=== PATIENT | female | born 1990 | race African-American/Black ===

== ENCOUNTER 2024-07-11 12:16 | Emergency (ER) | payer OTHER, SELFPAY ==
--- NOTE | ~2024-07-11 | XR_ITS ---
EXAMINATION: XR CHEST CLINICAL INFORMATION: chest pain COMPARISON: None available. TECHNIQUE: 2 views of the chest were obtained. FINDINGS: The cardiac, hilar, and mediastinal contours are normal. The lungs are clear bilaterally. There is no pneumothorax or pleural effusion. There is no focal osseous or soft tissue abnormality. XR/XR chest 2V IMPRESSION: Normal chest. Electronically signed by: Wai Cruz MD 07/11/2024 02:17 PM [facility]
--- NOTE | 2024-07-11 12:27 | ECG_ITS ---
Test Reason : CHEST PAIN Blood Pressure : / mmHG Vent. Rate : 097 BPM Atrial Rate : 097 BPM P-R Int : 148 ms QRS Dur : 072 ms QT Int : 350 ms P-R-T Axes : 059 023 017 degrees QTc Int : 444 ms Normal sinus rhythm Possible Left atrial enlargement Nonspecific T wave abnormality Abnormal ECG No previous ECGs available Referred By: Generic ED Physician Electronically Signed By:Ric Truong
[2024-07-11 12:32] VITALS: BP 151/90; BP 158/105; PULSE 118; PULSE 89; RESP 18; TEMP 36.8; O2SAT 100; BMI 26.7
--- NOTE | 2024-07-11 12:40 | ED.CHESTPAIN ---
HPI - Chest Pain General Chief Complaint: Chest Pain Stated Complaint: SHARP CP PER EMS Time Seen by Provider: 07/11/24 16:09 Source: patient Mode of arrival: ambulatory Limitations: no limitations History of Present Illness ED Provider: DR. Castaneda HPI narrative: 34-year-old female who was otherwise healthy moved from [place] to [facility] for month ago started her new job, for the last 4 month patient noted that she gained about 10-15 lb unintentionally, patient also noticed that she has been having epigastric pain with food, and has been having menstrual disturbance which is not normal for her Now her menstruation is regular and back to normal, patient is sexually not active for the past 4-5 months. No risk for STDs. presented today for 4 hours history of mid chest pain that has been waxing and waning blood constant for 4 hours pain is in the center of the chest with no radiation, No lower extremity swelling or tenderness, no SOB at rest. No history of tobacco smoking or drug use, history is insignificant For ACS /pulmonary embolism in young age. Related Data Allergies Allergy/AdvReac Type Severity Reaction Status Date / Time shrimp Allergy Anaphylaxis Verified 07/11/24 12:39 Review of Systems Review of Systems: all other systems are reviewed and are negative Constitutional: Reports as per HPI and Reports no additional constitutional complaints Eyes: Reports as per HPI and Reports no additional eye complaints Reports system reviewed and no additional complaints, except as documented Cardiovascular: Reports as per HPI and Reports no additional cardiovascular complaints Respiratory: Reports as per HPI and Reports no additional respiratory complaints Gastrointestinal: Reports as per HPI and Reports no additional gastrointestinal complaints Genitourinary: Reports no additional female genitourinary complaints Musculoskeletal: Reports no additional musculoskeletal complaints Skin/Breast: Reports system reviewed and no additional complaints, except as docu Psychiatric: Reports no additional psychiatric complaints Endocrine: Reports no additional endocrine complaints Hematologic/Lymphatic: Reports no additional hematologic/lymphatic complaints Allergic/Immunologic: Reports no additional allergic/immunologic complaints Reports system reviewed and no additional complaints, except as documented and Reports Abnormal speech present [facility] Social History Social History Smoked in Last 30 Days: No Use of substances other than those prescribed or required for medical reasons: No Do you have a plan to hurt others: No Plan Patient : No Physical Exam Vital Signs: Vital Signs: Last Vital Signs Temp 98.3 F 07/11/24 16:25 Pulse 85 07/11/24 16:25 Resp 12 07/11/24 16:25 BP 130/88 07/11/24 16:25 Pulse Ox 100 07/11/24 16:25 O2 Del Method Room Air 07/11/24 16:25 BMI result Body Mass Index 26.7 Vital signs have been reviewed and appear to be correct. Blood pressure elevated. Heart rate normal. Respiratory rate normal. Temperature normal. Oxygen saturation normal. Appearance: Alert. Oriented X3. No acute distress. Head: Normal external exam. Normocephalic. Atraumatic. No Layton signs noted. No raccoon eyes noted Eyes: PERRLA. EOMI. Conjunctiva and sclera normal. Eyelids normal. ENT: TM's Normal. Pharynx normal. Uvula midline. Moist mucous membranes. No trismus noted. No drooling noted. No muffled voice noted. Neck: Normal inspection. Neck supple. FROM. No adenopathy. Thyroid Normal. No meningeal signs. No neck mass noted. CVS: Normal heart rate and rhythm. Heart sound normal. No murmurs noted. Pulses normal throughout. Respiratory: No respiratory distress. Painless inspiration. Breath sounds normal. No wheezes/rales/rhonchi noted. Chest nontender. No accessory muscle usage noted or decreased air movement noted. Abdomen: Soft and nontender. Bowel sounds normal in all 4 quadrants. No distention noted. No organomegaly noted. No visible injury noted. Back: No CVA tenderness. Full range of motion noted. Skin: Skin warm and dry. Normal skin color. Normal skin turgor. No rashes/lesions/lacerations noted. Extremities: No lower extremity edema. Extremities exhibit normal range of motion. Extremities nontender. Neuro: Oriented X 3. Cranial nerve exam: II-XII are grossly intact No motor deficit. No sensory deficit. Reflexes normal. Course Course Course Narrative: This is a Rapid Medical Examination (RME) performed by Evangelista Virgen PA-C in triage. Full HPI, ROS, assessment and treatment plan per primary provider in the Main ED. 34 yo female here via EMS for eval of sternal chest pain. no radiation. originally a 9/10, now an 8/10. not relieved with aspirin or nitro. no recent travel or long car rides. + well appearing Plan: labs, ekg, cxr Reevaluation(s) Reevaluation #1: 34-year-old female came in with chest pain for 4 hours, no risk for a pulmonary embolism, negative D-dimer, heart score is low, patient recently moved to [facility] looking for PCP, pain is consistent with GI /gastritis. Time: 17:30 Medical Decision Making Differential Diagnosis Differential Diagnoses: The differential diagnosis associated with the presentation includes ( ACS, pulmonary embolism, pneumonia, pleural effusion, pneumonia, gastritis, pericarditis.) Admission/Observation Consideration of admission/observation: Escalation of care including admission/observation considered Lab Data MDM Lab Attestation statement: I reviewed the patient's lab results. 07/11/24 13:21 07/11/24 13:21 Labs: Lab Results 07/11/24 07/11/24 Range/Units 13:17 13:21 WBC 4.4 L (4.8-10.8) X10*3/uL RBC 4.05 L (4.20-5.50) X10*6/uL Hgb 11.7 L (12.0-16.0) g/dl Hct 35.2 L (37.0-47.0) % MCV 86.9 (80.0-98.0) fL MCH 28.9 (27.0-33.0) pg MCHC 33.2 (31.0-35.0) g/dl RDW 13.2 (11.0-16.0) % Plt Count 308 (160-400) X10*3/uL MPV 8.8 L (9.4-12.3) fL Immature Gran % (Auto) 0.2 (0.0-0.4) % Neut % (Auto) 52.4 (45-73) % Lymph % (Auto) 32.5 (20-40) % [place] % (Auto) 5.5 (2-11) % Eos % (Auto) 8.7 H (0-4) % Baso % (Auto) 0.7 (0-2) % Lymph # (Auto) 1.4 (1.2-4.9) X10*3/uL [place] # (Auto) 0.2 (0.1-1.2) X10*3/uL Eos # (Auto) 0.4 (0.0-0.4) X10*3/uL Baso # (Auto) 0.0 (0.0-0.2) X10*3/uL Abs Immat Gran (auto) 0.01 (0.00-0.03) X10*3/uL Absolute Neuts (auto) 2.3 (2.0-8.3) x10*3/uL Absolute Nucleated RBC 0.000 (0.0-0.012) X10*3/uL Nucleated RBC % (auto) 0.0 (0.0-0.2) /100WBC PT 11.4 (10.9-12.4) SEC INR 1.0 (0.9-1.1) Sodium 139 (135-145) mmol/L Potassium 3.7 (3.3-5.1) mmol/L Chloride 106 (96-108) mmol/L Carbon Dioxide 29 (22-29) mmol/L Anion Gap 8 L (12-20) BUN 12 (9-16) mg/dL Creatinine 0.94 (0.5-1.4) mg/dL Estim Creat Clear Calc 97.4 Estimated GFR > 60 Random Glucose 94 (60-115) mg/dL Calcium 9.5 (8.4-10.2) mg/dL Magnesium 2.0 (1.6-2.6) mg/dL Total Bilirubin 0.4 (0.0-1.0) mg/dL AST 31 (5-31) U/L ALT 18 (0-31) U/L Alkaline Phosphatase 27 L (39-117) U/L Troponin I High Sens < 2.7 (<3.5-17.0) ng/L Total Protein 8.0 (6.5-8.0) g/dL Albumin 4.3 (3.5-5.0) g/dL Lipase 28 (8-78) U/L Urine Test NEGATIVE (NEGATIVE) Influenza Type A (PCR) NEGATIVE (Negative) Influenza Type B (PCR) NEGATIVE (Negative) RSV RNA Qual (PCR) NEGATIVE (Negative) SARS-CoV-2 RNA (RT-PCR) NEGATIVE (Negative) Independent Interpretation I performed an independent interpretation of an: EKG ( Normal sinus rhythm at 97 beats per minutes, normal axis deviation, normal intervals, nonspecific T-wave abnormalities, no old EKG to compare.) and Plain X-Ray ( acute intrathoracic pathology.) Radiology Impression Discussion of test interpretation with radiology: I have reviewed the radiologist's reading. Discharge Plan Discharge Clinical Impression: Atypical chest pain Patient Disposition: Home, Self-Care Instructions: Chest Pain (ED) Referrals: Pavan Sidhu MD [Physician] - [place] [Physician] -
[2024-07-11 13:28] LABS: MANUAL DIFF FLAG NO
[2024-07-11 13:31] LABS: Basophils Percent Auto 0.7 % (0-2); Eosinophils Absolute Auto 0.4 X10*3/uL (0.0-0.4); Eosinophils Percent Auto 8.7 % (0-4); Hematocrit 35.2 % (37.0-47.0); Hemoglobin 11.7 g/dl (12.0-16.0); Imm Gran Abs Auto 0.01 X10*3/uL (0.00-0.03); Imm Gran Pct Auto 0.2 % (0.0-0.4); Lymphocytes Absolute Auto 1.4 X10*3/uL (1.2-4.9); Lymphocytes Percent Auto 32.5 % (20-40); Mean Corpuscular HGB Conc 33.2 g/dl (31.0-35.0); Mean Corpuscular Hemoglobin 28.9 pg (27.0-33.0); Mean Corpuscular Volume 86.9 fL (80.0-98.0); Mean Platelet Volume 8.8 fL (9.4-12.3); Monocytes Absolute Auto 0.2 X10*3/uL (0.1-1.2); Monocytes Percent Auto 5.5 % (2-11); Neutrophils Absolute Auto 2.3 x10*3/uL (2.0-8.3); Neutrophils Percent Auto 52.4 % (45-73); Platelet Count 308 X10*3/uL (160-400); Red Blood Count 4.05 X10*6/uL (4.20-5.50); Red Cell Distribution Width 13.2 % (11.0-16.0); White Blood Count 4.4 X10*3/uL (4.8-10.8)
[2024-07-11 13:33] LABS: UPreg QC Valid YES
[2024-07-11 13:34] LABS: Urine Pregnancy NEGATIVE (NEGATIVE)
[2024-07-11 13:36] LABS: Prothrombin Time 11.4 SEC (10.9-12.4)
[2024-07-11 13:45] LABS: Alanine Aminotransferase 18 U/L (0-31); Albumin Level 4.3 g/dL (3.5-5.0); Alkaline Phosphatase 27 U/L (39-117); Anion Gap 8 (12-20); Aspartate Amino Transferase 31 U/L (5-31); Bilirubin Total 0.4 mg/dL (0.0-1.0); Blood Urea Nitrogen 12 mg/dL (9-16); Calcium 9.5 mg/dL (8.4-10.2); Carbon Dioxide 29 mmol/L (22-29); Chloride 106 mmol/L (96-108); Creatinine Clr Calc Pharmacy 97.4; Estimated Glomerular Filt Rate > 60; Glucose Random 94 mg/dL (60-115); Lipase 28 U/L (8-78); Potassium 3.7 mmol/L (3.3-5.1); Sodium 139 mmol/L (135-145)
[2024-07-11 13:51] LABS: Troponin-I High Sensitivity < 2.7 ng/L (<3.5-17.0)
[2024-07-11 14:07] LABS: Influenza A PCR NEGATIVE (Negative); Influenza B PCR NEGATIVE (Negative); Resp Syncy Virus RNA Qual PCR NEGATIVE (Negative); SARS COV2 PCR INHOUSE NEGATIVE (Negative)
--- NOTE | 2024-07-11 16:06 | PC.NURSE ---
Pt comes to ED today for c/o chest pain Pt reports constant 8/10 stabbing medial chest pain--no radiation. State pain is worse with exercise. Denies n/v/d, SOB, PHILLIPS, vision changes. Pt also reports recent weight gain of unknown cause. A&Ox3 Breaths and speech are slow and even Skin is warm and dry Facial symmetry present. EKG, labs and urine completed via triage. Awaiting dispo.
[2024-07-11 16:25] VITALS: BP 130/88; PULSE 85; RESP 12; TEMP 36.8; O2SAT 100
[2024-07-11 16:50] LABS: D Dimer High Sensitivity < 150 NG/ML
[2024-07-11 17:05] LABS: Troponin-I High Sensitivity < 2.7 ng/L (<3.5-17.0)
[2024-07-11 18:37] VITALS: BP 130/88; PULSE 85; RESP 12; TEMP 36.8; O2SAT 100
== END 2024-07-11 18:43 | disposition home or self-care (01) ==
PROVIDERS: Physician Assistant Medical; Emergency Provider Emergency Medicine
DX: R07.89 Other chest pain (principal); Z03.818 Encounter for observation for suspected exposure to other biological agents ruled out; Z79.899 Other long term (current) drug therapy
CPT/HCPCS: 0241U; 36415; 71046; 80053; 81025; 83690; 83735; 84484; 85025; 85379; 85610; 93005; 99283; 99285

== ENCOUNTER → 2024-07-11 12:27 | Outpatient (BNV) | payer OTHER, SELFPAY | PROVIDERS: Emergency Provider Emergency Medicine; Visit Provider Internal Medicine Cardiovascular Disease | DX: R94.31 Abnormal electrocardiogram [ECG] [EKG] (principal) | CPT/HCPCS: 93010 ==

== ENCOUNTER → 2024-07-11 12:38 | Outpatient (BNV) | payer OTHER, MEDICAID, SELFPAY | PROVIDERS: Visit Provider Radiology Diagnostic Radiology | DX: R07.9 Chest pain, unspecified (principal) | CPT/HCPCS: 71046 ==

== ENCOUNTER 2024-07-24 09:59 | Outpatient (REF) | payer OTHER, SELFPAY ==
[2024-07-24 12:34] LABS: Folate 14.8 ng/mL (> or = 4.0); Vitamin B12 1735 pg/mL (200-900)
[2024-07-28 16:58] LABS: Vitamin D 25-OH, D2 <4 ng/mL; Vitamin D 25-OH, D3 9 ng/mL; Vitamin D 25-OH, Total 9 ng/mL (30-100)
== END 2024-07-24 10:00 | disposition home or self-care (01) ==
LOC: HO.LAB 09:59
PROVIDERS: Visit Provider Nurse Practitioner Family
DX: R19.7 Diarrhea, unspecified (principal); E55.9 Vitamin D deficiency, unspecified; R10.13 Epigastric pain; R14.0 Abdominal distension (gaseous)
CPT/HCPCS: 36415; 82306; 82607; 82746; 99202

== ENCOUNTER 2024-07-24 09:59 | Outpatient (AMB) | payer OTHER, SELFPAY ==
--- NOTE | 2024-07-24 10:01 | MHC.OFFVIS ---
Vital Signs 07/24/24 10:02 Height 5 ft 9 in Weight 177 lb 11.081 oz BMI 26.2 BP 134/90 H Blood Pressure Location Rt brachial Position Sitting Pulse 82 Pulse Source Pulse Oximeter Pulse Oximetry (%) 100 Oxygen Delivery Method Room Air Intake Visit Reasons: Gastritis, ED referral Intake Note: NEW PATIENT Josselin presents in office today for a scheduled initial assessment / consultation Prior hx of colo/egd? N Meds and Allergies reviewed? Y Any significant concerns or questions? Pt seen in ED. Dx with Gastritis per moderate to severe CP. Nausea. Pharmacy verified? [facility] [address] [facility] Important FMHx? None [employer] Auditor Required: No Allergies shrimp Allergy (Verified 07/24/24 10:02) Anaphylaxis HPI HPI Gastritis, ED referral: Details: ED VISIT 07/11/2024 :Course Course Narrative: This is a Rapid Medical Examination (RME) performed by Evangelista Virgen PA-C in triage. Full HPI, ROS, assessment and treatment plan per primary provider in the Main ED. 34 yo female here via EMS for eval of sternal chest pain. no radiation. originally a 9/10, now an 8/10. not relieved with aspirin or nitro. no recent travel or long car rides. + well appearing Plan: labs, ekg, cxr Reevaluation(s) Reevaluation #1: 34-year-old female came in with chest pain for 4 hours, no risk for a pulmonary embolism, negative D-dimer, heart score is low, patient recently moved to [facility] looking for PCP, pain is consistent with GI /gastritis. Time: 17:30 Medical Decision Making Differential Diagnosis Differential Diagnoses: The differential diagnosis associated with the presentation includes ( ACS, pulmonary embolism, pneumonia, pleural effusion, pneumonia, gastritis, pericarditis.) Admission/Observation Consideration of admission/observation: Escalation of care including admission/observation considered TODAY'S VISIT 34-year-old female with no significant past medical history is here today for initial consultation. Patient is seen in the ER on 11 of July for stabbing like chest pain. Ruled out CAD while in the ED. Patient describes this pain as sharp. Occasionally patient describes feeling of tightness in the middle of her chest, however she believes it could be anxiety that causes her feeling despite. However patient does admit that she will have epigastric pain without any burning or reflux. Patient denies dyspepsia, dysphagia or odynophagia. Reports that she is moving her bowels daily or every other day. She feels like she empties her bowels well Patient also reports feeling bloated in just recently gaining over 10 lb in the past few months. Patient reports that she tries to eat healthy. For the most part she eats vegetables and foods. Staying away from anything that is greasy or any processed food. 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 Patient states that she has been under some stress from moving and starting her new job. Review of Systems Const Denies weight gain and Denies weight loss ENT Reports no additional complaints, Denies dysphagia and Denies odynophagia Card Reports no additional complaints Resp Reports no additional complaints GI Denies abdominal pain, Reports belching, Denies melena, Reports bloating, Denies change in bowel habits, Denies dysphagia, Denies excessive flatus, Denies dyspepsia, Denies heartburn, Denies diarrhea, Denies loose stools, Denies nausea, Denies odynophagia and Denies vomiting Reports no additional complaints Musc Reports no additional complaints Neuro Reports no additional complaints Psych Reports no additional complaints Endo Reports no additional complaints Physical Exam Vital Signs: Last Vital Signs Pulse 82 07/24/24 10:02 BP 134/90 H 07/24/24 10:02 Pulse Ox 100 07/24/24 10:02 Oxygen Delivery Method Room Air 07/24/24 10:02 BMI result Body Mass Index 26.2 Const General: healthy appearing, no acute distress and well developed Nutritional Appearance: well nourished Orientation/consciousness: patient oriented x3 Resp Effort & Inspection: normal respiratory effort, able to speak in complete sentences, no tracheal deviation and symmetric chest movement Auscultation: clear to auscultation bilaterally Cardio Rate: regular rate GI Inspection: Yes normal to inspection and No distended Palpation (GI): Soft to palpation, not firm, nontender and No hepatosplenomegaly present Auscultation: normal bowel sounds General: Yes no CVA tenderness Back/Spine/Pelvis Back: no CVA tenderness Skin General skin exam: elasticity normal, turgor normal and dry skin Neuro General: patient oriented x3 Psych Appearance: grossly normal Mental Status: mental status grossly normal Assessment & Plan Assessment & Plan (1) Postprandial epigastric pain: Code(s): R10.13 - Epigastric pain (2) Postprandial abdominal bloating: Code(s): R14.0 - Abdominal distension (gaseous) Plan Patient will go for upper GI series to check for reflux, hernia. Will do H pylori testing. Patient unable to do breath test as she is chewing today. Must be NPO for 1 hour in order to have the test done will do stool study in that. Patient will have vitamin-D, B12 and folate check as well as thyroid study. Patient will start taking Pepcid daily if reflux seen on upper GI study we will send a script for PPI. Patient will follow low FODMAP diet. Discussed with patient certain food that cause bloating. List of food recommended as well as list of food to avoid given to patient. Orders: Orders Vitamin B12 and Folate Today R19.7 - Diarrhea, unspecified Vitamin D 25-OH (D2 and D3) Today E55.9 - Vitamin D deficiency, unspecified FL upper GI w Ba Swallow Today K21.9 - Gastro-esophageal reflux disease without esophagitis H pylori Ag Stool Today K21.9 - Gastro-esophageal reflux disease without esophagitis Medications: New famotidine (Pepcid) 20 mg PO DAILY 30 tabs 3RF K21.9 - Gastro-esophageal reflux disease without esophagitis Coding Level of Care Code New Pt Level 3 (76317) Diagnoses Postprandial epigastric pain R10.13 Postprandial abdominal bloating R14.0 Time Spent (min) 40 Comment 30 minutes spent with patient and additional 10 minutes spent reviewing her records
[2024-07-24 10:02] VITALS: BP 134/90; PULSE 82; O2SAT 100; BMI 26.2
== END 2024-07-24 10:32 | disposition home or self-care (01) ==
PROVIDERS: Visit Provider Nurse Practitioner Family
DX: R10.13 Epigastric pain (principal); R14.0 Abdominal distension (gaseous)
CPT/HCPCS: 99203